=== PATIENT | female | born 2000 | race Caucasian/White ===

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

== ENCOUNTER 2021-03-22 19:37 | Emergency (ER) | payer OTHER ==
[~2021-03-22] VITALS: Ht 157.5 cm; Wt 88.6 kg
[2021-03-22 19:51] VITALS: BP 125/90
--- NOTE | 2021-03-22 19:54 | NUR ---
to lobby a/w bed ambulatory
--- NOTE | 2021-03-22 21:20 | NUR ---
seen and examined by ALANA
[2021-03-22 21:39] VITALS: BP 125/90
--- NOTE | 2021-03-22 21:43 | NUR ---
PT LEFT WITHOUT D/C PAPERS
== END 2021-03-22 21:43 | disposition home or self-care (01) ==
LOC: MED 19:37
DX: S09.93XA Unspecified injury of face, initial encounter (principal); K13.79 Other lesions of oral mucosa; J45.909 Unspecified asthma, uncomplicated; Z91.012 Allergy to eggs; Z91.011 Allergy to milk products; Z91.010 Allergy to peanuts; Z91.013 Allergy to seafood; Z91.018 Allergy to other foods; W19.XXXA Unspecified fall, initial encounter; Y93.89 Activity, other specified; Y92.89 Other specified places as the place of occurrence of the external cause; Y99.8 Other external cause status
CPT/HCPCS: 99281

== ENCOUNTER 2021-05-22 18:46 | Emergency (ER) | payer OTHER ==
[~2021-05-22] VITALS: Ht 157.5 cm; Wt 86.6 kg
[2021-05-22 19:08] VITALS: BP 114/68
--- NOTE | 2021-05-22 19:08 | NUR ---
TO LOBBY A/W BED AMBULATORY
[2021-05-22] MEDS ORDERED: predniSONE 20 MG TAB PO ONE (23:00)
[2021-05-22] MEDS ORDERED: ALBUTEROL SULFATE/IPRATROPIU 3 ML SOL IH ONE (23:00)
[2021-05-22] MEDS ORDERED: ALBUTEROL 0.083% 2.5 MG/3 ML NEBU INH ONE (23:00)
[2021-05-22] MEDS ORDERED: PRED20TA5 PO (23:03)
[2021-05-22] MEDS ORDERED: ALBU0.0912 IH (23:03)
[2021-05-22 23:45] VITALS: BP 114/68
== END 2021-05-22 23:45 | disposition home or self-care (01) ==
LOC: MED 18:46
DX: J45.901 Unspecified asthma with (acute) exacerbation (principal); J45.909 Unspecified asthma, uncomplicated; Z88.8 Allergy status to other drugs, medicaments and biological substances; Z91.013 Allergy to seafood; Z91.018 Allergy to other foods
CPT/HCPCS: 93005; 94640; 99283; J7512; J7613

== ENCOUNTER 2021-06-16 13:01 | Emergency (ER) | payer OTHER ==
[~2021-06-16] VITALS: Ht 157.5 cm; Wt 88.9 kg
[~2021-06-16 13:01] MED LIST: ALBU0.0912 IH; PRED20TA5 PO
[2021-06-16 14:14] VITALS: BP 111/64
[2021-06-16] MEDS ORDERED: IBUP-2213 PO (14:58)
[2021-06-16 15:22] VITALS: BP 111/64
== END 2021-06-16 15:22 | disposition home or self-care (01) ==
LOC: MED 13:01
DX: R07.2 Precordial pain (principal); J45.909 Unspecified asthma, uncomplicated; Z79.899 Other long term (current) drug therapy; Z91.012 Allergy to eggs; Z91.011 Allergy to milk products; Z91.010 Allergy to peanuts; Z91.013 Allergy to seafood; Z91.09 Other allergy status, other than to drugs and biological substances
CPT/HCPCS: 71045; 93005; 99283

== ENCOUNTER 2022-02-12 10:24 | Emergency (ER) | payer OTHER ==
[~2022-02-12] VITALS: Ht 157.5 cm; Wt 81.6 kg
[~2022-02-12 10:24] MED LIST changes: +IBUP-2213 PO
[2022-02-12 10:53] VITALS: BP 145/82
--- NOTE | 2022-02-12 11:30 | NUR ---
PT AMB TO BED 10.
--- NOTE | 2022-02-12 11:32 | NUR ---
PT AMB TO ER BED 10
--- NOTE | 2022-02-12 11:39 | NUR ---
21/F WALKED IN C/O PAINFUL LUMP NOTED ON LEFT BREAST 3 DAYS AGO. DENIES ANY FAMILY HX OF CA. AAOX4, AMBULATORY. URINE COLLECTED
[2022-02-12 11:41] VITALS: BP 137/84
== END 2022-02-12 12:10 | disposition home or self-care (01) ==
LOC: MED 10:24
DX: L08.9 Local infection of the skin and subcutaneous tissue, unspecified (principal); J45.909 Unspecified asthma, uncomplicated; Z79.899 Other long term (current) drug therapy; Z79.1 Long term (current) use of non-steroidal anti-inflammatories (NSAID); Z91.012 Allergy to eggs; Z91.011 Allergy to milk products; Z91.010 Allergy to peanuts; Z91.013 Allergy to seafood; Z91.09 Other allergy status, other than to drugs and biological substances
CPT/HCPCS: 81025; 99282

== ENCOUNTER 2022-10-09 13:00 | Emergency (ER) | payer OTHER ==
[~2022-10-09] VITALS: Ht 160 cm; Wt 72.6 kg
[2022-10-09 13:32] VITALS: BP 119/73
[2022-10-09] MEDS ORDERED: LIDOCAINE MPF 1% 10 MG/ML VIAL INJ ONE (14:20)
[2022-10-09] MEDS ORDERED: ACETAMINOPHEN 325 MG TAB PO ONE (14:20)
[2022-10-09] MEDS ORDERED: IBUP-2213 PO (14:52)
[2022-10-09 15:22] VITALS: BP 131/71
--- NOTE | 2022-10-09 15:22 | NUR ---
Patient discharged with v/s stable. Written and verbal after care instructions given. Patient alert, oriented and verbalized understanding of instructions. Ambulatory with steady gait. All questions addressed prior to discharge. ID band removed. Patient advised to follow up with PMD. Rx of Ibuprofen given. Opportunity to ask questions provided and answered. WORK NOTE HANDED TO PATIENT.
== END 2022-10-09 15:22 | disposition home or self-care (01) ==
LOC: MED 13:00
DX: S67.02XA Crushing injury of left thumb, initial encounter (principal); S60.112A Contusion of left thumb with damage to nail, initial encounter; J45.909 Unspecified asthma, uncomplicated; Z79.899 Other long term (current) drug therapy; Z79.1 Long term (current) use of non-steroidal anti-inflammatories (NSAID); Z91.012 Allergy to eggs; Z91.011 Allergy to milk products; Z91.010 Allergy to peanuts; Z91.013 Allergy to seafood; Z91.040 Latex allergy status; Z91.048 Other nonmedicinal substance allergy status; W23.0XXA Caught, crushed, jammed, or pinched between moving objects, initial encounter; Y93.89 Activity, other specified; Y92.89 Other specified places as the place of occurrence of the external cause; Y99.8 Other external cause status
CPT/HCPCS: 11740; 73140; 99284; J2001

== ENCOUNTER 2023-03-27 01:20 | Emergency (ER) | payer OTHER ==
[~2023-03-27] VITALS: Ht 157.5 cm; Wt 81.6 kg
[~2023-03-27 01:20] MED LIST changes: +ALBU0.0912 INH; +BENZ100C6 PO; +DEXT118S25 PO; +SUD30 PO
[2023-03-27 01:24] VITALS: BP 127/71; PULSE 88; RESP 16; TEMP 98.3; O2SAT 100
[2023-03-27 02:09] LABS: APPEARANCE,URINE CLEAR (CLEAR); BILIRUBIN,URINE NEGATIVE (NEGATIVE); BLOOD, URINE 3+ (NEGATIVE); COLOR,URINE YELLOW (YELLOW); LEUKOCYTE ESTERASE ,URINE NEGATIVE (NEGATIVE); NITRITE, URINE NEGATIVE (NEGATIVE); PH,URINE 6.5 (5.0-9.0); PROTEIN,URINE 1+ (NEGATIVE); UGLUCOSE NEGATIVE (NEGATIVE); UROBILINOGEN,URINE 0.2 EU/dL (0.2 - 1)
[2023-03-27 02:23] LABS: RBC,URINE TOO NUMEROUS TO COUN /HPF (0-5); WBC,URINE 16-25 (MOD) /HPF (0-5)
[2023-03-27 02:48] LABS: BACTERIA,URINE 10-30 (MOD) /HPF (None Seen); MUCUS,URINE 2+ /LPF (None Seen); SQUAMOUS EPITHELIAL CELL,UR 0-3 (FEW) /LPF (0-3 (FEW))
[2023-03-27] MEDS ORDERED: cefTRIAXone 1,000 MG in LIDOCAINE MPF 1% 2.1 ML IM ONE (02:50)
[2023-03-27] MEDS ORDERED: KETOROLAC 60 MG/2 ML VIAL IM ONE (02:50)
[2023-03-27] MEDS ORDERED: cefTRIAXone 1,000 MG VIAL ONE (02:56)
[2023-03-27] MEDS ORDERED: LIDOCAINE MPF 1% 5 ML ONE (02:56)
[2023-03-27] MEDS ORDERED: CIPR500T4 PO (03:16)
[2023-03-27] MEDS ORDERED: NAPR-54 PO (03:16)
[2023-03-27 03:20] VITALS: BP 112/64; PULSE 78; RESP 14; TEMP 98.5; O2SAT 100
== END 2023-03-27 03:20 | disposition home or self-care (01) ==
LOC: MED 01:20
DX: N39.0 Urinary tract infection, site not specified (principal); J45.909 Unspecified asthma, uncomplicated; Z79.1 Long term (current) use of non-steroidal anti-inflammatories (NSAID); Z79.2 Long term (current) use of antibiotics; Z79.899 Other long term (current) drug therapy; Z91.012 Allergy to eggs; Z91.040 Latex allergy status; Z91.010 Allergy to peanuts; Z91.011 Allergy to milk products; Z91.013 Allergy to seafood; Z91.048 Other nonmedicinal substance allergy status
CPT/HCPCS: 81001; 87086; 96372; 99284; J0696; J1885; J2001

== ENCOUNTER 2023-08-22 09:19 | Emergency (ER) | payer OTHER ==
[~2023-08-22] VITALS: Ht 157.5 cm; Wt 85.7 kg
[~2023-08-22 09:19] MED LIST changes: +CIPR500T4 PO; +NAPR-54 PO
[2023-08-22 09:33] VITALS: BP 117/74; PULSE 88; RESP 16; TEMP 98; O2SAT 99
[2023-08-22] MEDS: LORazepam 1 MG TAB PO ONE (10:10)
[2023-08-22] MEDS ORDERED: ATA25 PO (10:12)
== END 2023-08-22 10:17 | disposition home or self-care (01) ==
LOC: MED 09:19
DX: R07.89 Other chest pain (principal); J45.909 Unspecified asthma, uncomplicated; F12.90 Cannabis use, unspecified, uncomplicated; Z79.899 Other long term (current) drug therapy; Z91.012 Allergy to eggs; Z91.09 Other allergy status, other than to drugs and biological substances; Z91.040 Latex allergy status; Z91.011 Allergy to milk products; Z91.010 Allergy to peanuts; Z91.013 Allergy to seafood
CPT/HCPCS: 81002; 81025; 93005; 99283

== ENCOUNTER 2023-12-11 00:18 | Emergency (ER) | payer OTHER ==
[~2023-12-11] VITALS: Ht 157.5 cm; Wt 72.6 kg
[~2023-12-11 00:18] MED LIST changes: +ATA25 PO; +NAPR-337 PO; -NAPR-54 PO
[2023-12-11 00:28] VITALS: BP 112/61; PULSE 88; RESP 16; TEMP 97.6; O2SAT 99
[2023-12-11] MEDS ORDERED: BENZ200C4 PO (01:41)
[2023-12-11 01:43] VITALS: BP 114/60; PULSE 87; RESP 17; TEMP 97.6; O2SAT 99
== END 2023-12-11 01:43 | disposition home or self-care (01) ==
LOC: MED 00:18
DX: S29.012A Strain of muscle and tendon of back wall of thorax, initial encounter (principal); J45.909 Unspecified asthma, uncomplicated; Z79.1 Long term (current) use of non-steroidal anti-inflammatories (NSAID); Z79.2 Long term (current) use of antibiotics; Z79.899 Other long term (current) drug therapy; Z91.012 Allergy to eggs; Z91.040 Latex allergy status; Z91.011 Allergy to milk products; Z91.010 Allergy to peanuts; Z91.013 Allergy to seafood; X58.XXXA Exposure to other specified factors, initial encounter; Y93.89 Activity, other specified; Y92.89 Other specified places as the place of occurrence of the external cause; Y99.8 Other external cause status
CPT/HCPCS: 71045; 99283; Q0092

== ENCOUNTER 2024-01-31 03:15 | Emergency (ER) | payer OTHER ==
[~2024-01-31] VITALS: Ht 157.5 cm; Wt 72.6 kg
[~2024-01-31 03:15] MED LIST changes: +BENZ200C4 PO
[2024-01-31 03:20] VITALS: BP 122/70; PULSE 95; RESP 20; TEMP 98.5; O2SAT 99
--- NOTE | 2024-01-31 04:10 | NUR ---
SEEN AND EXAMINED BY ALANA, WITH ORDERS AND CARRIED OUT.
[2024-01-31] MEDS ORDERED: HYDR25CA1 PO (04:15)
[2024-01-31 04:25] VITALS: BP 122/70; PULSE 95; RESP 20; TEMP 98.5; O2SAT 99
[2024-01-31] MEDS: LORazepam 1 MG TAB PO ONE (04:25)
--- NOTE | 2024-01-31 04:25 | NUR ---
Patient discharged with v/s stable. Written and verbal after care instructions given and explained. Patient alert, oriented and verbalized understanding of instructions. All questions addressed prior to discharge. ID band removed. Patient advised to follow up with PMD. Rx of given. Patient educated on indication of medication including possible reaction and side effects. Opportunity to ask questions provided and answered.
== END 2024-01-31 04:25 | disposition home or self-care (01) ==
LOC: MED 03:15
DX: F41.0 Panic disorder [episodic paroxysmal anxiety] (principal); R07.89 Other chest pain; J45.909 Unspecified asthma, uncomplicated; Z79.899 Other long term (current) drug therapy; Z91.012 Allergy to eggs; Z91.048 Other nonmedicinal substance allergy status; Z91.040 Latex allergy status; Z91.011 Allergy to milk products; Z91.010 Allergy to peanuts; Z91.013 Allergy to seafood
CPT/HCPCS: 99283